=== PATIENT | male | born 1955 | race Caucasian/White ===

== ENCOUNTER 2021-02-07 09:55 | Emergency (ER) | payer OTHER, SELFPAY ==
[2021-02-07 09:56] VITALS: BP 133/109; PULSE 84; RESP 16; TEMP 36.4; O2SAT 98; BMI 32.0
--- NOTE | 2021-02-07 10:23 | CT_ITS ---
STUDY: CTA CHEST REASON FOR EXAM: Male, 66 years old. One week history of chest pain/shortness of breath. RADIATION DOSAGE (If Supplied By Facility): CTDIvol = ( 15.17 ) mGy, DLP = ( 499.01 ) mGycm TECHNIQUE: The examination was performed with the intravenous administration of IV 100mL Isovue-370. Post-processing of the angiographic images was performed, with multiplanar reformation and 3D reconstruction. Individualized dose optimization techniques were used for this CT. COMPARISON: None. FINDINGS: Normal enhancement of the main pulmonary artery and right and left pulmonary arteries. Normal enhancement of the bilateral peripheral pulmonary arteries. There is no demonstrated pulmonary embolism. Normal thoracic aorta and visualized great vessels. There is no demonstrated aortic dissection. Normal heart and pericardium. Normal mediastinum. Normal hilar regions. Normal visualized trachea and bronchi. The lungs are well expanded. Minimal increased linear markings at the right lung base suggestive of a layering atelectasis. Normal pleura. Normal chest wall structures. Normal osseous structures. Status post cholecystectomy. CT/CTA Chest W/WO Contrast IMPRESSION: No evidence of pulmonary embolism. Minimal right basilar linear atelectasis. Electronically Signed: Adonis Quiroz MD at 11:51 EDT , Service support ,
--- NOTE | 2021-02-07 10:23 | EKG12_ITS ---
Test Reason : SOB,CP Blood Pressure : / mmHG Vent. Rate : 079 BPM Atrial Rate : 277 BPM P-R Int : 000 ms QRS Dur : 094 ms QT Int : 402 ms P-R-T Axes : 000 -40 001 degrees QTc Int : 460 ms Atrial fibrillation Left axis deviation Abnormal ECG Confirmed by JOVON HICKS, JANELLE ([id number]), editor & co founder LUNA EID ([id number]) on 02/09/2021 9:57:19 AM Referred By: RADHA Confirmed By:JANELLE SIGALA MD
--- NOTE | 2021-02-07 10:25 | ED.VIS.DYS ---
HPI History of Present Illness Chief Complaint: Shortness of Breath Informant: patient Narrative Narrative: 66-year-old male presenting to the emergency department with shortness of breath fatigue. Patient states that he has been on Xarelto for many years due to a large pulmonary embolism. He states that he has intermittently gone off of it. He is from [place] and drove to [place] to drop his daughter for college and then from [place] to here in [place]. He states that because of the drive he put himself back on Xarelto. He notes episodes of shortness of breath and fatigue. He states that he is an avid mountain biker and has noticed that on several recent rides he has had to drop out which is very unusual for him. He denies any significant chest pain or palpitations. He denies any known cardiac history. He does state that while he was getting ultrasound for gallbladder issue it was noted that he had some spots on his lungs and they recommended a CT which he has not yet had. He is concerned that he may have a pulmonary embolism or what the spots might be. [facility] Medical History History of pulmonary embolism Home Medications rivaroxaban [Xarelto] 20 mg PO DAILY 02/07/21 [History Last Taken Unknown] Allergy/AdvReac Type Severity Reaction Status Date / Time No Known Allergies Allergy Verified 02/07/21 09:58 Surgical History History of hip replacement Social History (Updated 02/07/21 @ 10:[address] Ezequiel Mcdowell DO) Smoking Status: Never smoker substance use type: does not use ROS ROS ED ROS Narrative Fatigue Constitutional Constitutional ED: Denies chills or weight loss Eyes Eyes: Denies change in vision or diplopia ENT ENT ED: Denies ear pain, rhinorrhea or sore throat Cardiovascular Cardiovascular: Denies chest pain, orthopnea, palpitations or racing heartbeat Respiratory/Chest Respiratory/Chest: Reports dyspnea and dyspnea on exertion; Denies cough or orthopnea Gastrointestinal Gastrointestinal: Denies abdominal pain, diarrhea, nausea or vomiting Genitourinary Genitourinary ED: Denies dysuria, hematuria or urinary frequency Musculoskeletal Musculoskeletal: Denies arthralgias or myalgias Integumentary Denies abscess or rash Neurologic Neurologic: Denies headache(s) or weakness Psychiatric Psychiatric: Denies anxiety, depression, suicidal ideation or suicidal thoughts Endocrine Endocrinology: Denies polydipsia, polyphagia or polyuria Allergic/Immunologic Allergic/Immunologic ED: Denies mouth swelling, tongue swelling or urticaria EXAM Physical Exam Const Vital Signs: 02/07/21 09:56 02/07/21 10:53 Temperature 97.5 F L Temperature Source Temporal Pulse Rate 84 Respiratory Rate 16 Respiratory Effort Normal Respiratory Depth Normal Respiratory Pattern Normal Blood Pressure 133/109 H Blood Pressure Mean 117 Pulse Ox 98 Oxygen Delivery Method Room Air Room Air Positive well nourished and well developed General Appearance ED: well developed HEENT Reports normocephalic, head/scalp atraumatic and moist mucous membranes Eyes PERRL and EOMs intact bilaterally Neck no lymphadenopathy, supple and no JVD Resp normal respiratory effort and clear to auscultation bilaterally Cardio no murmurs Cardio Narrative: Irregularly irregular rhythm Rate: other GI normal to inspection, nondistended, normoactive bowel sounds and non-tender Palpation: soft Back/Spine no CVA tenderness and normal ROM Extremity normal to inspection General Extremety ED: Negative for edema General Extremity: Negative for edema Neuro oriented x3 and CN's II-XII intact bilaterally Sensorium / Orientation: alert Motor Exam: strength 5/5 throughout Psych mental status grossly normal Mood & Affect: Negative for depressed or tearful Skin no rashes or lesions noted and no wounds MDM MDM MDM Narrative Medical decision making narrative: Patient has been observed on the monitor and is in a rate controlled atrial fibrillation rhythm. Basic blood work is essentially negative including magnesium troponin TSH potassium sodium and his CBC. CTA of the chest was obtained which does not demonstrate any pulmonary embolism or lesions. At this point patients symptoms are most likely due to his A. fib and the loss of atrial kick. Patient was advised to call his doctor in [place] today and find out who they would like him to see for cardiology and to make an appointment to be seen when he gets home. Patient has requested a copy of his records which I think is a reasonable request to take back home with him. Lab Data Labs: Laboratory Results - last 24 hr 02/07/21 02/07/21 02/07/21 10:33 10:33 10:33 WBC 5.0 RBC 5.35 Hgb 16.1 Hct 47.9 MCV 89.5 MCH 30.1 MCHC 33.6 RDW Std Deviation 43.5 RDW Coeff of Hernandez 13.4 Plt Count 256 MPV 9.5 Immature Gran % (Auto) 0.200 Neut % (Auto) 44.4 L Lymph % (Auto) 41.0 Marshall % (Auto) 9.0 Eos % (Auto) 4.2 Baso % (Auto) 1.2 H Absolute Neuts (auto) 2.2 Absolute Lymphs (auto) 2.06 Nucleated RBC % 0 PT 17.6 H INR 1.5 APTT 36.7 H Sodium 138 Potassium 4.2 Chloride 108 H Carbon Dioxide 29.0 Anion Gap 1 L BUN 18 Creatinine 1.11 Estim Creat Clear Calc 80.36 Est GFR (MDRD) Af Amer 86 Est GFR (MDRD) Non-Af 71 BUN/Creatinine Ratio 16.2 Glucose 90 Calcium 8.7 Magnesium 2.2 Troponin I High Sens 8 TSH 1.36 Radiography Diagnostic Testing: Radiology Impression Chest CTA 02/07/21 10:23 IMPRESSION: No evidence of pulmonary embolism. Minimal right basilar linear atelectasis. Electronically Signed: Adonis Quiroz MD at 11:51 EDT , Service support , EKG Initial EKG: Attestation: I personally reviewed and interpreted this EKG as follows: Comments: Atrial fibrillation with a ventricular rate of 79 bpm. No concerning features of ACS noted Discharge Plan Triage Chief Complaint: Shortness of Breath ED Provider: Ezequiel Mcdowell Dx/Rx/DC Orders Clinical Impression: Atrial fibrillation, new onset Instructions: ED AFIB Prescriptions: No Action Xarelto 20 mg Tablet 20 mg PO DAILY RF: 0 Referrals: BARI GREGORIO [Other] Activity Restrictions/Additional Instructions: Continue taking Xarelto as directed. Please call your doctor to help arrange early follow-up when you return home. Feel free to return to the emergency department at any time if you're experiencing new or concerning symptoms Disposition Disposition: Home, Self Care
--- NOTE | 2021-02-07 10:32 | NURSING ---
NO OLD EKGS
[2021-02-07 10:40] LABS: Absolute Lymphocyte Count 2.06 X10^3/uL (0.83-4.51); Absolute Neutrophil Count 2.2 X10^3/uL (2.0-7.7); Basophil# 0.06 X10^3/uL; Basophil% 1.2 % (0-1); Eosinophil# 0.21 X10^3/uL; Eosinophils% 4.2 % (0-5); Hematocrit 47.9 % (40-54); Hemoglobin 16.1 g/dL (13.0-16.5); Lymphocyte # 2.06 X10^3/ul (0.83-4.51); Mean Corp Hgb Conc 33.6 g/dL (32-36); Mean Corpuscular Hgb 30.1 pg (27.0-32.0); Mean Corpuscular Volume 89.5 fL (80-94); Mean Platelet Vol. 9.5 fl (6.2-12.0); Monocyte# 0.45 X10^3/uL; NRBC Flagged by Analyzer 0 % (0-5); Neutrophil # 2.23 X10^3/uL (2.7-7.7); Neutrophil % 44.4 % (47-70); Platelet Count 256 K/mm3 (150-450); RBC Distribution Width CV 13.4 % (11.6-14.6); RBC Distribution Width SD 43.5 fl (35.1-43.9); Red Blood Count 5.35 M/mm3 (4.6-6.2)
[2021-02-07 10:48] LABS: International Normalized Ratio 1.5; Prothrombin Time (Protime)PT. 17.6 SECONDS (11.7-14.9)
[2021-02-07 10:49] LABS: Partial Thromboplast Time 36.7 Seconds (24.1-36.2)
[2021-02-07 10:53] VITALS: O2SAT 98
[2021-02-07 11:04] LABS: Anion Gap 1 (5-15); BUN 18 mg/dL (7-18); BUN/Creat Ratio 16.2 RATIO (10-20); Calcium,Total 8.7 mg/dL (8.5-10.1); Chloride 108 mmol/L (98-107); Creatinine, Serum 1.11 mg/dL (0.70-1.30); EST Glomerular Filtration Rate 71 mL/min (>60); Est Glom Filt Rate - Afr Amer 86 mL/min (>60); Estimated Creatinine Clearance 80.36 ml/min; Glucose 90 mg/dL (74-106); Magnesium 2.2 mg/dL (1.6-2.6); Potassium 4.2 mmol/L (3.5-5.1); Sodium Level 138 mmol/L (136-145); Thyroid Stim Hormone (TSH) 1.36 uIU/mL (0.358-3.74); Troponin-I HS 8 pg/mL (3.0-78.0)
[2021-02-07 12:13] VITALS: BP 124/84; PULSE 61; RESP 14; O2SAT 99
== END 2021-02-07 12:14 | disposition home or self-care (01) ==
PROVIDERS: Emergency Provider Emergency Medicine
DX: I48.91 Unspecified atrial fibrillation (principal); Z79.01 Long term (current) use of anticoagulants; Z86.711 Personal history of pulmonary embolism
CPT/HCPCS: 71275; 80048; 83735; 84443; 84484; 85025; 85610; 85730; 93005; 99285; Q9967